=== PATIENT | male | born 1990 | race Caucasian/White ===

== ENCOUNTER 2018-03-24 09:19 | Emergency (ER) | payer OTHER ==
[2018-03-24] MEDS: IBUPROFEN 600 MG TAB PO (11:03)
== END 2018-03-24 11:10 | disposition home or self-care (01) ==
LOC: M ED 09:19
DX: S16.1XXA Strain of muscle, fascia and tendon at neck level, initial encounter (principal); V49.49XA Driver injured in collision with other motor vehicles in traffic accident, initial encounter; Y92.410 Unspecified street and highway as the place of occurrence of the external cause
CPT/HCPCS: 99283